=== PATIENT | female | born 1970 | race African-American/Black ===

== ENCOUNTER 2021-06-28 11:14 | Outpatient (CLI) | payer OTHER | END 2021-06-28 11:15 | disposition home or self-care (01) | LOC: BICCT 11:14 | PROVIDERS: ATTEND Family Medicine | DX: R19.05 Periumbilic swelling, mass or lump (principal); N85.8 Other specified noninflammatory disorders of uterus | CPT/HCPCS: 74177; 77063; 77067 ==